=== PATIENT | male | born 1975 | race Two or more races ===

== ENCOUNTER 2018-10-09 13:21 | Emergency (ER) | payer MEDICAID, OTHER ==
[~2018-10-09] VITALS: Ht 182.9 cm; Wt 99.8 kg
[2018-10-09] MEDS ORDERED: NKM (13:27)
[2018-10-09 13:45] VITALS: BP 142/97
--- NOTE | 2018-10-09 14:10 | Emergency Room Report ---
History of Present Illness General Chief Complaint: General Complaint Source: Patient Present Illness HPI 43-year-old male presents to the emergency department complaining of several dark colored lesions on the anterior shins times several months. Patient states that initially he had some insect bites there were very itchy however they never did quite go away. Patient denies fevers, chills, lesions elsewhere on the body, recent travel or contacts with similar symptoms. pt. denies Pmhx. Vision also requests that he had a full checkup as he has not had one in 6 weeks. Patient states the last time he had blood work done was 6 weeks ago as well.Denies abdominal pain/ tenderness, CP, Palpitations, LOC, AMS, dizziness, Changes in Vision, Sensation, paresthesias, or a sudden severe headache. Allergies: Coded Allergies: No Known Allergies (Unverified , 10/09/18) Patient History Past Medical History: see triage record Past Surgical History: none Pertinent Family History: none Social History: Reports: smoking - THC Reviewed Nursing Documentation: PMH: Agreed; PSxH: Agreed Nursing Documentation-PMH Past Medical History: No Stated History Review of Systems All Other Systems: negative except mentioned in HPI Physical Exam Vital Signs Date Time Temp Pulse Resp B/P (MAP) Pulse Ox O2 Delivery O2 Flow Rate FiO2 10/09/18 13:23 98.2 104 24 142/97 97 Room Air Sp02 EP Interpretation: reviewed, normal General Appearance: no apparent distress, alert, GCS 15, non-toxic Head: normocephalic, atraumatic Eyes: bilateral eye normal inspection, bilateral eye PERRL ENT: hearing grossly normal, normal voice Neck: full range of motion Respiratory: lungs clear, normal breath sounds, no respiratory distress, no wheezing, speaking full sentences Cardiovascular #1: regular rate, rhythm Gastrointestinal: non tender, soft Musculoskeletal: back normal, gait/station normal, normal range of motion, non- tender Neurologic: alert, oriented x3, responsive, motor strength/tone normal, sensory intact, normal gait, speech normal, grossly normal Psychiatric: judgement/insight normal Skin: normal color, no rash, warm/dry, well hydrated, other - Pt. has several scars on anterior shins from insect bites all 0.4cm in diameter or less, no erythema, warmth, blisters, vessicles, crusting, open wounds or bleeding. Medical Decision Making PA Attestation Dr. Ang is my supervising Physician whom patient management has been discussed with. Diagnostic Impression: Primary Impression: Encounter for medical screening examination Additional Impression: Insect bite Qualified Codes: W57.XXXA - Bitten or stung by nonvenomous insect and other nonvenomous arthropods, initial encounter ER Course 43-year-old male presents to the emergency department complaining of several dark colored lesions on the anterior shins times several months. Patient states that initially he had some insect bites there were very itchy however they never did quite go away. Patient denies fevers, chills, lesions elsewhere on the body, recent travel or contacts with similar symptoms. pt. denies Pmhx. Vision also requests that he had a full checkup as he has not had one in 6 weeks. Patient states the last time he had blood work done was 6 weeks ago as well.Denies abdominal pain/ tenderness, CP, Palpitations, LOC, AMS, dizziness, Changes in Vision, Sensation, paresthesias, or a sudden severe headache. Ddx considered but are not limited to AMS, ETOH, infection, Trauma/Fall, CVA, [place] , Psych, homelessness, scar, insect bite, infestation just to name a few. Vital signs: are WNL, pt. is afebrile H&PE are most consistent with scar from previous insect bites, no active infection or allergic reaction. No acute injury or disease noted at this time. pt. is NAD, NON-toxic, able to answer questions appropriately, pt. is oriented, and no signs of trauma or focal neurological deficits. ORDERS: none required at this time, the diagnosis is clinical ED INTERVENTIONS: None required at this time -I do not identify an emergent condition at this time. With current presentation , pt. is stable for close outpatient follow up and conservative treatment. D/ w pt. to return promptly to ED with worsening or new symptoms.- Pt. verbalizes' understanding and agreement with proposed treatment plan. DISCHARGE: At this time pt. is stable for d/c to home. Will provide printed patient care instructions, and any necessary prescriptions. Care plan and follow up instructions have been discussed with the patient prior to discharge. -Pt. given list of near-by free/reduced cost primary care clinics. Last Vital Signs Date Time Temp Pulse Resp B/P (MAP) Pulse Ox O2 Delivery O2 Flow Rate FiO2 10/09/18 13:45 98.2 98 24 142/97 97 Room Air Disposition: HOME, SELF-CARE Condition: Stable Scripts Bacitracin/Polymyxin B Sulfate (BACITRACIN-POLYMYXIN OINTMENT) 28.35 Gm Oint...g. 1 APPLIC TP BID, #28.3 GM Prov: Sapna Blackburn 10/09/18 Referrals: Naveed SHANNON,REFERRING (PCP) Patient Instructions: Medical Screening Exam Additional Instructions: Take medications as directed. Follow up with a Primary Care Provider in 3-5 days, even if your symptoms have resolved. --Please review list of primary care clinics, if you do not already have a primary care provider Return sooner to ED if new symptoms occur, or current symptoms become worse. - Please note that this Emergency Department Report was dictated using [employer] in housekeeper technology software, occasionally this can lead to erroneous entry secondary to interpretation by the dictation equipment. Sapna Blackburn Oct 09, 2018 14:10
[2018-10-09] MEDS ORDERED: BACITRACIN-P28.35 GM TP (14:11)
[2018-10-09 14:23] VITALS: BP 135/88
== END 2018-10-09 14:25 | disposition home or self-care (01) ==
LOC: EMR 13:50
DX: S80.862A Insect bite (nonvenomous), left lower leg, initial encounter (principal); W57.XXXA Bitten or stung by nonvenomous insect and other nonvenomous arthropods, initial encounter; Y92.89 Other specified places as the place of occurrence of the external cause
CPT/HCPCS: 99282